=== PATIENT | female | born 1995 | race African-American/Black ===

== ENCOUNTER → 2019-01-12 09:38 | Outpatient (CLI) | payer OTHER, SELFPAY ==
--- NOTE | 2019-01-12 | DI.NM.S_ITS ---
PROCEDURE: NM BONE 3 PHASE RADIOPHARMACEUTICAL: 22.5 mCi Tc-99m MDP IV. INDICATIONS: PAIN IN LEFT LOWER LEG TECHNIQUE: Multiple bone scintigrams were obtained after intravenous injection of Tc-99m MDP, including flow, blood pool, and delayed images centered to the region of interest. COMPARISON: None. FINDINGS: The flow and blood pool images demonstrate symmetrical vascular activity 2 lower changes. Delayed images demonstrate focal increased activity in the proximal tibia laterally near the proximal tibiofibular joint. IMPRESSION: Focal increased activity in the proximal tibia laterally near the proximal tibiofibular joint. Recommend radiographic correlation. Dictated by: Opal Obando M.D. on 01/12/2019 at 15:42 Approved by: Opal Obando M.D. on 01/12/2019 at 15:45
== END ==
PROVIDERS: PCP Physician Assistant; Visit Provider Physician Assistant
DX: M79.662 Pain in left lower leg (principal)
CPT/HCPCS: 78315; A9503

== ENCOUNTER → 2022-10-01 07:37 | Outpatient (CLI) | payer OTHER, SELFPAY ==
--- NOTE | 2022-10-02 10:48 | DI.NM.S_ITS ---
DATE OF SERVICE: 10/01/2022 PROCEDURE: Exercise treadmill stress test without imaging. ORDERING PROVIDER: Odalis Pacheco MD INDICATIONS: The patient is a 27-year-old obese female with migraines, palpitations, and chest discomfort. FINDINGS: 1. The patient was able to exercise for 5 minutes and 29 seconds on a standard Lucian protocol, suggesting moderate-severely reduced exercise capacity with an HAIM of +45%, achieving 7.0 METS. 2. She had a normal heart rate response to exercise with a resting heart rate of 103 BPM, increasing to a maximum of 178 BPM (92% of her predicted maximum). She had a borderline hypertensive blood pressure response with a resting blood pressure of 136/90, increasing to a maximum of 200/80. 3. She developed 6/10 chest discomfort with exercise. 4. The resting ECG shows sinus rhythm with diffuse T-wave flattening but normal ST segments. With exercise, there are no significant ST-segment shifts or arrhythmias. IMPRESSION: 1. Probable normal exercise treadmill study for ischemia. 2. Moderate-severely reduced exercise capacity with provokable chest discomfort but no significant ST-segment shifts or arrhythmias. 3. Borderline hypertensive blood pressure response to exercise. Joann Woodward - [employer]/andrew/la nena doc#: [id number]/job#: [id number] dd: 10/01/2022 17:40:00 dt: 10/01/2022 21:04:00 DICTATING MD/COPIES TO: Francesco Holley MD; Odalis Pacheco MD COPIES MNE: DILLON;
== END ==
PROVIDERS: Referring Provider Internal Medicine Cardiovascular Disease; Visit Provider Internal Medicine Cardiovascular Disease
DX: R07.89 Other chest pain (principal); R00.2 Palpitations; E66.9 Obesity, unspecified
CPT/HCPCS: 93017

== ENCOUNTER → 2022-10-09 07:59 | Outpatient (CLI) | payer OTHER, SELFPAY ==
--- NOTE | 2022-10-09 | DI.ECHO.S_ITS ---
[facility]---------+ [facility] +---------+ : : [address] [place] : : : : [id number] : : : : Phone: [phone]+ Echocardiogram Report + + :Name: CRISSY LEON Study Date: 10/09/2022 Height: 64 in : :[facility] ReadingLocation: Weight: 236 lb : : Gender: Female BSA: 2.1 m2 : :: 1995 Age: 27 yrs BP: 134/102 mmHg: :Reason For Study: CHEST PAIN : :Ordering Physician: SHALONDA, : :KITA Performed By: Slime Dorsey : :Referring: KITA VARGHESE : + + Interpretation Summary The left ventricle is normal in size and wall thickness. Normal LV systolic function. The ejection fraction is estimated to be 60-65%. No significant diastolic dysfunction. The right ventricle is normal in size and function. No significant valvular pathology seen. The IVC is of normal diameter and collapses greater than 50% with a sniff. This suggests a low right atrial pressure of 3 mm Hg. Procedure: A two-dimensional transthoracic echocardiogram with color flow and Doppler was performed. The study quality was technically adequate. There is no prior echocardiogram noted for this patient. The patient was in sinus rhythm with heart rates between 72-95 bpm during the exam. Left Ventricle: The left ventricle is normal in size and wall thickness. There is no thrombus. The ejection fraction is estimated to be 60-65%. There are no focal wall motion abnormalities. Diastolic parameters suggest probable normal left ventricular diastolic function and normal filling pressures. Right Ventricle: The right ventricle is normal in size and function. Atria: The left atrial size is normal. Right atrial size is normal. There is no Doppler evidence for an interatrial shunt. Mitral Valve: The mitral valve is normal in structure and function. There is trace mitral regurgitation. Aortic Valve: The aortic valve is trileaflet. The aortic valve opens well. There is no aortic valve stenosis. No aortic regurgitation is present. Tricuspid Valve: The tricuspid valve is normal in structure and function. There is trace tricuspid regurgitation. The right ventricular systolic pressure is estimated to be at least 19 mmHg based on an estimated right atrial pressure of 3 mm Hg. Pulmonic Valve: The pulmonic valve leaflets are thin and pliable; valve motion is normal. There is no pulmonic valvular regurgitation. Great Vessels: The aortic root is normal size. The dimensions of the ascending aorta are normal. The IVC is of normal diameter and collapses greater than 50% with a sniff. This suggests a low right atrial pressure of 3 mm Hg. Pericardium/ Pleura There is no pericardial effusion. There is no pleural effusion. MMode/2D Measurements & Calculations LVIDd: 4.1 cm LVOT diam: 2.0 cm LVIDs: 2.9 cm Ao root diam: 2.7 cm FS: 28.8 % asc Aorta Diam: 2.4 cm EPSS: 0.85 cm Ao Arch Diam (Prox Trans): 2.3 cm IVSd: 1.0 cm LVPWd: 0.91 cm LV kessler. diameter/BSA (cm/m^2): 2.0 LV sys. diameter/BSA (cm/m^2): 1.4 LA A2 area: 10.2 cm2 RA long axis: 3.8 cm LA A4 area: 10.7 cm2 RA area: 8.6 cm2 LA length (vol): 4.2 cm RA vol: 16.8 ml LA vol: 22.2 ml RA : 8.0 ml/m2 LA vol index: 10.6 ml/m2 IVC diam: 0.70 cm RVD1 (basal): 2.8 cm RVD2 (mid): 2.2 cm TAPSE: 1.8 cm Doppler Measurements & Calculations Ao V2 max: 108.7 cm/sec LVOT Max Tomy: 71.3 cm/sec Ao V2 mean: 77.9 cm/sec LV V1 max P.0 mmHg Ao max P.7 mmHg LV V1 VTI: 13.8 cm Ao mean P.6 mmHg BERRY(I,D): 2.3 cm2 Ao V2 VTI: 19.6 cm BERRY(V,D): 2.1 cm2 sev ratio: 0.70 BERRY indexed to BSA (cm^2/m^2): 1.1 MV E max tomy: 55.5 cm/sec TR max tomy: 202.2 cm/sec MV A max tomy: 53.3 cm/sec TR max P.3 mmHg MV E/A: 1.0 PA V2 max: 93.8 cm/sec Med Peak E' Tomy: 11.8 cm/sec PA V2 mean: 68.1 cm/sec E/E' med: 4.7 PA mean P.0 mmHg Lat Peak E' Tomy: 15.8 cm/sec PA pr(Accel): 19.1 mmHg E/E' lat: 3.5 E/e' average: 4.1 MV dec time: 0.18 sec SV(LVOT): 44.8 ml Reading Physician:05:48 PM
== END ==
PROVIDERS: Referring Provider Internal Medicine Cardiovascular Disease; Visit Provider Internal Medicine Cardiovascular Disease
DX: R07.89 Other chest pain (principal); R00.2 Palpitations
CPT/HCPCS: 93306

== ENCOUNTER → 2023-02-25 09:39 | Outpatient (CLI) | payer OTHER, SELFPAY | PROVIDERS: Referring Provider Internal Medicine; Visit Provider Internal Medicine | DX: J45.40 Moderate persistent asthma, uncomplicated (principal) | CPT/HCPCS: 94060; 94726; 94729 ==